=== PATIENT | male | born 1935 | race Caucasian/White ===

== ENCOUNTER 2016-09-19 13:35 | Outpatient (CLI) | payer MEDICARE, OTHER | END 2016-09-19 13:36 | disposition home or self-care (01) | DX: I12.9 Hypertensive chronic kidney disease with stage 1 through stage 4 chronic kidney disease, or unspecified chronic kidney disease (principal); E11.22 Type 2 diabetes mellitus with diabetic chronic kidney disease; N18.3 Chronic kidney disease, stage 3 (moderate); I35.0 Nonrheumatic aortic (valve) stenosis; I25.10 Atherosclerotic heart disease of native coronary artery without angina pectoris ==

== ENCOUNTER 2017-12-12 08:00 | Outpatient (CLI) | payer MEDICARE, OTHER ==
[2017-12-12 13:20] LABS: BASOPHILS % (AUTO) 0.7 %; EOSINOPHILS # (AUTO) 0.1 10^3/uL (0.0-0.7); LYMPHOCYTES # (AUTO) 1.4 10^3/uL (1.5-3.5); LYMPHOCYTES % (AUTO) 31.3 %; MEAN CORPUSCULAR HEMOGLOBIN 32.7 pg (27.0-31.0); MEAN CORPUSCULAR HGB CONC 34.3 g/dL (32.0-36.0); MEAN CORPUSCULAR VOLUME 95.4 fL (80.0-94.0); MEAN PLATELET VOLUME 8.1 fL (7.4-11.4); MONOCYTES # (AUTO) 0.3 10^3/uL (0.0-1.0); MONOCYTES % (AUTO) 7.3 %; NEUTROPHILS # (AUTO) 2.5 10^3/uL (1.5-6.6); NEUTROPHILS % (AUTO) 57.7 %; PLT - PLATELET COUNT 133 10^3/uL (130-450); RED BLOOD COUNT 4.28 10^6/uL (4.70-6.10); RED CELL DISTRIBUTION WIDTH 13.4 % (12.0-15.0); WHITE BLOOD COUNT 4.4 x10^3/uL (4.8-10.8)
[2017-12-12 13:35] LABS: ALBUMIN 3.9 g/dL (3.2-5.5); ALBUMIN/GLOBULIN RATIO 1.3 (1.0-2.2); ALKALINE PHOSPHATASE 29 IU/L (42-121); ALT ALANINE AMINOTRANSFERASE 65 IU/L (10-60); AST ASPARTATE AMINOTRANSFERASE 84 IU/L (10-42); BILIRUBIN,TOTAL 0.7 mg/dL (0.2-1.0); BUN - BLOOD UREA NITROGEN 16 mg/dL (6-20); CALCIUM 9.1 mg/dL (8.5-10.3); CARBON DIOXIDE - CO2 28 mmol/L (21-32); CHLORIDE 101 mmol/L (101-111); CHOL/HDL RATIO 7.6 (<5.0); CHOLESTEROL 273 mg/dL; CREATININE 1.1 mg/dL (0.6-1.2); GFR - MDRD 64 (>89); GLUCOSE 229 mg/dL (70-100); HDL CHOLESTEROL 36 mg/dL; LDL CHOLESTEROL,CALCULATED 169 mg/dL; LDL/HDL RATIO 4.7 (<3.6); SODIUM 135 mmol/L (135-145); TOTAL PROTEIN 6.9 g/dL (6.7-8.2); VLDL CHOLESTEROL 68 mg/dL
[2017-12-12 13:38] LABS: THYROID STIMULATING HORMONE 5.64 uIU/mL (0.34-5.60)
[2017-12-12 13:44] LABS: HB2 TOTAL 15.2 g/dL; HEMOGLOBIN A1C 1.21 g/dL; HEMOGLOBIN A1C % 9.4 % (4.6-6.2)
[2017-12-12 14:27] LABS: FREE T4 (FREE THYROXINE) 0.66 ng/dL (0.58-1.64)
== END 2017-12-12 08:01 | disposition home or self-care (01) ==
LOC: LAB.WCP 08:00
PROVIDERS: ATTEND Family Medicine
DX: N18.3 Chronic kidney disease, stage 3 (moderate) (principal); E11.22 Type 2 diabetes mellitus with diabetic chronic kidney disease; I50.9 Heart failure, unspecified; I95.1 Orthostatic hypotension; N28.9 Disorder of kidney and ureter, unspecified
CPT/HCPCS: 36415; 80053; 80061; 82043; 83036; 83721; 84439; 84443; 85025

== ENCOUNTER 2018-03-26 11:32 | Outpatient (CLI) | payer MEDICARE, OTHER ==
[2018-03-26 19:19] LABS: ALBUMIN 4.1 g/dL (3.2-5.5); BILIRUBIN,TOTAL 1.2 mg/dL (0.2-1.0); CALCIUM 9.5 mg/dL (8.5-10.3); CREATININE 1.3 mg/dL (0.6-1.2)
[2018-03-26 19:27] LABS: HB2 TOTAL 15.7 g/dL; HEMOGLOBIN A1C 0.96 g/dL; HEMOGLOBIN A1C % 7.7 % (4.6-6.2)
[2018-03-26 19:48] LABS: ALBUMIN/GLOBULIN RATIO 1.1 (1.0-2.2); TOTAL PROTEIN 7.8 g/dL (6.7-8.2)
== END 2018-03-26 11:33 | disposition home or self-care (01) ==
LOC: LAB.WCP 11:32
PROVIDERS: ATTEND Family Medicine
DX: R74.8 Abnormal levels of other serum enzymes (principal); E11.9 Type 2 diabetes mellitus without complications; I25.10 Atherosclerotic heart disease of native coronary artery without angina pectoris; E78.5 Hyperlipidemia, unspecified; N18.3 Chronic kidney disease, stage 3 (moderate); I12.9 Hypertensive chronic kidney disease with stage 1 through stage 4 chronic kidney disease, or unspecified chronic kidney disease; I95.1 Orthostatic hypotension; N28.9 Disorder of kidney and ureter, unspecified; I50.9 Heart failure, unspecified
CPT/HCPCS: 36415; 80053; 82043; 83036

== ENCOUNTER 2018-04-01 14:44 | Outpatient (CLI) | payer MEDICARE, OTHER ==
[2018-04-01 19:06] LABS: PT - PROTHROMBIN TIME 11.3 secs (9.9-12.6)
[2018-04-02 12:22] LABS: HEPATITIS A IGM NON-REACTIVE (NON-REACTIVE); HEPATITIS B CORE ANTIBODY IGM NON-REACTIVE (NON-REACTIVE); HEPATITIS B SURFACE ANTIGEN NON-REACTIVE (NON-REACTIVE); HEPATITIS C ANTIBODY NON-REACTIVE (NON-REACTIVE)
== END 2018-04-01 14:45 | disposition home or self-care (01) ==
LOC: LAB.WCP 14:44
PROVIDERS: ATTEND Family Medicine
DX: R74.8 Abnormal levels of other serum enzymes (principal); R94.5 Abnormal results of liver function studies; Z87.898 Personal history of other specified conditions
CPT/HCPCS: 36415; 80074; 85610

== ENCOUNTER 2018-04-12 09:13 | Outpatient (CLI) | payer MEDICARE, OTHER ==
--- NOTE | 2018-04-12 13:04 | Ultrasound Report ---
Procedure Date: 04/12/2018 Accession Number: [id number] / [id number] Procedure: US - Abdomen Limited CPT Code: FULL RESULT: EXAM: ABDOMEN ULTRASOUND LIMITED, RUQ EXAM DATE: 04/12/2018 10:20 AM. CLINICAL HISTORY: Elevated liver enzymes. COMPARISON: None. TECHNIQUE: Real-time scanning was performed with static images obtained. FINDINGS: Liver: Normal in size with increased echogenicity, which can be seen with parenchymal disease such as steatosis. Liver measures at least 14 cm. Main portal vein flow: Hepatopetal. Gallbladder: Normal. No stones, wall thickening, or sonographic Castañeda's sign. Biliary System: CBD measures 5 mm. No intrahepatic or extrahepatic ductal dilatation. Other: None. IMPRESSION: Normal. No cholelithiasis or cholecystitis. RADIA
== END 2018-04-12 09:14 | disposition home or self-care (01) ==
LOC: DI 09:13
PROVIDERS: ATTEND Family Medicine
DX: R74.8 Abnormal levels of other serum enzymes (principal)
CPT/HCPCS: 76705

== ENCOUNTER 2018-05-01 09:24 | Outpatient (CLI) | payer MEDICARE, OTHER ==
[2018-05-01 12:50] LABS: ALBUMIN 4.3 g/dL (3.2-5.5); ALBUMIN/GLOBULIN RATIO 1.4 (1.0-2.2); BILIRUBIN,TOTAL 0.9 mg/dL (0.2-1.0); CALCIUM 9.5 mg/dL (8.5-10.3); CREATININE 1.5 mg/dL (0.6-1.2); TOTAL PROTEIN 7.4 g/dL (6.7-8.2)
== END 2018-05-01 09:25 | disposition home or self-care (01) ==
LOC: LAB.WCP 09:24
PROVIDERS: ATTEND Family Medicine
DX: R74.8 Abnormal levels of other serum enzymes (principal)
CPT/HCPCS: 36415; 80053

== ENCOUNTER 2018-09-03 09:17 | Outpatient (CLI) | payer MEDICARE, OTHER ==
[2018-09-03 12:34] LABS: CALCIUM 9.5 mg/dL (8.5-10.3); CREATININE 1.4 mg/dL (0.6-1.2)
== END 2018-09-03 23:59 | disposition home or self-care (01) ==
LOC: LAB.WCP 09:17
PROVIDERS: ATTEND Internal Medicine Cardiovascular Disease
DX: I10 Essential (primary) hypertension (principal)
CPT/HCPCS: 36415; 80048

== ENCOUNTER 2018-09-25 08:00 | Outpatient (CLI) | payer MEDICARE, OTHER ==
[2018-09-25 13:02] LABS: HGB - HEMOGLOBIN 13.8 g/dL (14.0-18.0); MEAN CORPUSCULAR HEMOGLOBIN 32.4 pg (27.0-31.0); MEAN CORPUSCULAR HGB CONC 34.2 g/dL (32.0-36.0); MEAN CORPUSCULAR VOLUME 94.9 fL (80.0-94.0); MEAN PLATELET VOLUME 8.8 fL (7.4-11.4); RED BLOOD COUNT 4.25 10^6/uL (4.70-6.10); RED CELL DISTRIBUTION WIDTH 13.4 % (12.0-15.0); WHITE BLOOD COUNT 5.8 x10^3/uL (4.8-10.8)
[2018-09-25 13:14] LABS: CALCIUM 9.4 mg/dL (8.5-10.3); CREATININE 1.5 mg/dL (0.6-1.2)
== END 2018-09-25 23:59 | disposition home or self-care (01) ==
LOC: LAB.WCP 08:00
PROVIDERS: ATTEND Orthopaedic Surgery
DX: Z01.818 Encounter for other preprocedural examination (principal)
CPT/HCPCS: 36415; 80048; 85027

== ENCOUNTER 2018-10-23 08:25 | Outpatient (CLI) | payer MEDICARE, OTHER ==
[2018-10-23 13:03] LABS: BASOPHILS # (AUTO) 0.1 10^3/uL (0.0-0.1); BASOPHILS % (AUTO) 1.4 %; EOSINOPHILS # (AUTO) 0.2 10^3/uL (0.0-0.7); EOSINOPHILS % (AUTO) 3.2 %; HGB - HEMOGLOBIN 11.5 g/dL (14.0-18.0); LYMPHOCYTES # (AUTO) 2.2 10^3/uL (1.5-3.5); LYMPHOCYTES % (AUTO) 35.7 %; MEAN CORPUSCULAR HEMOGLOBIN 32.8 pg (27.0-31.0); MEAN CORPUSCULAR HGB CONC 34.6 g/dL (32.0-36.0); MEAN CORPUSCULAR VOLUME 94.6 fL (80.0-94.0); MONOCYTES # (AUTO) 0.6 10^3/uL (0.0-1.0); MONOCYTES % (AUTO) 9.5 %; NEUTROPHILS % (AUTO) 50.2 %; PLT - PLATELET COUNT 229 10^3/uL (130-450); RED BLOOD COUNT 3.52 10^6/uL (4.70-6.10); RED CELL DISTRIBUTION WIDTH 13.4 % (12.0-15.0)
[2018-10-23 13:10] LABS: ALBUMIN 3.8 g/dL (3.2-5.5); ALBUMIN/GLOBULIN RATIO 1.2 (1.0-2.2); BILIRUBIN,TOTAL 0.7 mg/dL (0.2-1.0); CREATININE 1.4 mg/dL (0.6-1.2)
[2018-10-23 13:22] LABS: HB2 TOTAL 12.2 g/dL; HEMOGLOBIN A1C 0.73 g/dL; HEMOGLOBIN A1C % 7.6 % (4.6-6.2)
== END 2018-10-23 08:26 | disposition home or self-care (01) ==
LOC: LAB.WCP 08:25
PROVIDERS: ATTEND Family Medicine
DX: R74.8 Abnormal levels of other serum enzymes (principal); E11.9 Type 2 diabetes mellitus without complications; N18.3 Chronic kidney disease, stage 3 (moderate); I25.10 Atherosclerotic heart disease of native coronary artery without angina pectoris; I35.0 Nonrheumatic aortic (valve) stenosis
CPT/HCPCS: 36415; 80053; 83036; 85025

== ENCOUNTER 2018-11-14 08:39 | Outpatient (CLI) | payer MEDICARE, OTHER ==
[2018-11-14 13:29] LABS: CHOL/HDL RATIO 3.7 (<5.0); CHOLESTEROL 146 mg/dL; HDL CHOLESTEROL 40 mg/dL; LDL CHOLESTEROL,CALCULATED 77 mg/dL; LDL/HDL RATIO 1.9 (<3.6); VLDL CHOLESTEROL 29 mg/dL
[2018-11-14 13:40] LABS: CREATININE,URINE 133.1 mg/dL; MICROALBUM/CREATININE RATIO,UR 7.5 ug/mg (<30.0)
== END 2018-11-14 23:59 | disposition home or self-care (01) ==
LOC: LAB.WCP 08:39
PROVIDERS: ATTEND Family Medicine
DX: E78.5 Hyperlipidemia, unspecified (principal); N18.3 Chronic kidney disease, stage 3 (moderate); I25.10 Atherosclerotic heart disease of native coronary artery without angina pectoris; E11.9 Type 2 diabetes mellitus without complications
CPT/HCPCS: 36415; 80061; 82043; 82570; 83721

== ENCOUNTER 2019-07-16 07:00 | Outpatient (CLI) | payer MEDICARE, OTHER ==
[2019-07-16 13:06] LABS: BASOPHILS # (AUTO) 0.1 10^3/uL (0.0-0.1); EOSINOPHILS # (AUTO) 0.1 10^3/uL (0.0-0.7); HGB - HEMOGLOBIN 13.8 g/dL (14.0-18.0); LYMPHOCYTES # (AUTO) 1.8 10^3/uL (1.5-3.5); MEAN CORPUSCULAR HGB CONC 31.2 g/dL (32.0-36.0); MEAN CORPUSCULAR VOLUME 99.3 fL (80.0-94.0); MEAN PLATELET VOLUME 10.7 fL (7.4-11.4); MONOCYTES # (AUTO) 0.5 10^3/uL (0.0-1.0); NEUTROPHILS # (AUTO) 2.7 10^3/uL (1.5-6.6); NEUTROPHILS % (AUTO) 52.6 %; PLT - PLATELET COUNT 163 10^3/uL (130-450); RED BLOOD COUNT 4.45 10^6/uL (4.70-6.10); RED CELL DISTRIBUTION WIDTH 12.6 % (12.0-15.0); WHITE BLOOD COUNT 5.1 x10^3/uL (4.8-10.8)
[2019-07-16 16:09] LABS: ALBUMIN 4.3 g/dL (3.2-5.5); ALBUMIN/GLOBULIN RATIO 1.4 (1.0-2.2); BILIRUBIN,TOTAL 0.8 mg/dL (0.2-1.0); CALCIUM 9.1 mg/dL (8.5-10.3); CREATININE 1.4 mg/dL (0.6-1.2); TOTAL PROTEIN 7.3 g/dL (6.7-8.2)
[2019-07-16 17:34] LABS: FREE T4 (FREE THYROXINE) 0.74 ng/dL (0.58-1.64)
[2019-07-16 17:37] LABS: HEMOGLOBIN A1C 0.92 g/dL; HEMOGLOBIN A1C % 8.2 % (4.6-6.2)
[2019-07-16 18:23] LABS: CREATININE,URINE 99.9 mg/dL; MICROALBUMIN,URINE 1.6 mg/dL (0-300.0)
== END 2019-07-16 23:59 | disposition home or self-care (01) ==
LOC: LAB.WCP 07:00
PROVIDERS: ATTEND Family Medicine
DX: E11.22 Type 2 diabetes mellitus with diabetic chronic kidney disease (principal); I12.9 Hypertensive chronic kidney disease with stage 1 through stage 4 chronic kidney disease, or unspecified chronic kidney disease; N18.3 Chronic kidney disease, stage 3 (moderate); I25.10 Atherosclerotic heart disease of native coronary artery without angina pectoris
CPT/HCPCS: 36415; 80053; 82043; 82570; 83036; 84439; 84443; 85025

== ENCOUNTER 2019-10-28 00:46 | Emergency (ER) | payer MEDICARE, OTHER ==
--- NOTE | 2019-10-28 01:06 | ED Physician Documentation ---
PD HPI CHEST PAIN - Stated complaint Stated Complaint: CP/LT ARM PX - Chief complaint Chief Complaint: Cardiac - History obtained from History obtained from: Patient - History of Present Illness Timing - onset: How many days ago (4-5) Timing - onset during: Rest (at night when in bed trying to sleep) Timing - duration: Hours Timing - details: Intermittant Pain level max: 4 Pain level now: 0 Quality: Pain Location: Other (across anterior chest ("my whole chest", per patient)) Radiation: Left upper extremity Improved by: Nitro, Other (repositioning in bed seems to correlate with improvement and/or resolution of the LUE pain) Associated symptoms: Nausea (episodic nausea when in bed trying to sleep over past 6 weeks, but does not seem to have correlation with timing of the LUE pain). No: Shortness of air Similar symptoms before: Has not had sx before Recently seen: Not recently seen - Additional information Additional information: c/o 4-5 days of LUE pain which seems to originate at left elbow and then radiate proximally to shoulder and distally to fingers. This occurs only at night and seems to be positional. For the past 2-3 days, he has had episodic chest pain across entire anterior chest, lasts hours but recurrent x 2-3 days. Sometimes correlates with the LUE pain but most episodes do not. There is no exertional component to any of these symptoms. He had the chest and LUE pain tonight but this resolved by the time of this H+P and he is currently asymptomatic PD PAST MEDICAL HISTORY - Past Medical History Cardiovascular: Hypertension, High cholesterol, Valve disorder Respiratory: Asthma Endocrine/Autoimmune: Type 2 diabetes GI: GERD Psych: None Musculoskeletal: None - Past Surgical History Cardiovascular: Valve replacement, Pacemaker HEENT: Cataracts - Present Medications Home Medications: Ambulatory Orders Medication Instructions Recorded Confirmed Albuterol Sulfate 0.63 mg IH 3-4XD PRN 06/02/13 06/02/13 Aspirin/Calcium Carbonate/Mag 325 mg PO DAILY 06/02/13 06/02/13 [Aspirin Non Irrit 325 mg Tab] Atorvastatin Calcium [Lipitor] 40 mg PO DAILY 06/02/13 06/02/13 Clonazepam 1 mg PO PRN 06/02/13 06/02/13 Fenofibrate [Tricor] 48 mg PO QD 06/02/13 06/02/13 Glipizide [Glipizide ER] 10 mg PO DAILY 06/02/13 06/02/13 Glucosa Rollins 2Kcl/Chondroitin Rollins 1 tab 06/02/13 06/02/13 [Glucosamine & Chondroitin Cap] Insulin Glargine [Lantus Solostar] 10 units QAM 06/02/13 06/02/13 Lisinopril 10 mg PO DAILY 06/02/13 06/02/13 Metformin HCl 1,000 mg PO BID 06/02/13 06/02/13 Metoprolol Succinate [Toprol Xl] 2 tab DAILY 06/02/13 06/02/13 Nitroglycerin [Nitrostat] 0.4 mg SL Q5MIN PRN 06/02/13 06/02/13 polyethylene glycoL 3350 [Miralax] 17 gm PO DAILY PRN 06/02/13 06/02/13 - Allergies Allergies/Adverse Reactions: Allergies Allergy/AdvReac Type Severity Reaction Status Date / Time No Known Drug Allergies Allergy Verified 06/02/13 15:36 - Social History Does the pt smoke?: No Smoking Status: Never smoker PD ED PE NORMAL - Vitals Vital signs reviewed: Yes - General General: Alert and oriented X 3, No acute distress, Well developed/nourished - HEENT HEENT: Moist mucous membranes - Neck Neck: Supple, no meningeal sign, No JVD - Cardiac Cardiac: RRR - Respiratory Respiratory: No respiratory distress, Clear bilaterally - Abdomen Abdomen: Normal bowel sounds, Soft, Non tender - Derm Derm: Normal color, Warm and dry - Extremities Extremities: No edema PD ED PE EXPANDED - Cardiac Cardiac: Murmur Present (3/6 ANNEMARIE right sternal border (right 2nd ICS)) Results - Vitals Vitals: Vital Signs - 24 hr 10/28/19 10/28/19 10/28/19 00:54 00:57 04:23 Temperature 36.9 C Heart Rate 58 L 60 60 Respiratory 20 18 18 Rate Blood Pressure 128/52 L 124/57 L 135/60 H O2 Saturation 96 95 97 - EKG (time done) No standard instances Rate: Rate (enter#) (60) Rhythm: Paced (a-v paced) - Labs Labs: Laboratory Tests 10/28/19 10/28/19 10/28/19 01:12 01:12 01:12 WBC 5.4 RBC 4.23 L Hgb 13.2 L Hct 40.9 L MCV 96.7 H MCH 31.2 H MCHC 32.3 RDW 12.5 Plt Count 136 MPV 10.0 Neut # (Auto) 2.5 Lymph # (Auto) 2.3 [place] # (Auto) 0.5 Eos # (Auto) 0.2 Baso # (Auto) 0.1 Absolute Nucleated RBC 0.00 Nucleated RBC % 0.0 Sodium 137 Potassium 4.2 Chloride 102 Carbon Dioxide 25 Anion Gap 10.0 BUN 20 Creatinine 1.1 Estimated GFR (MDRD) 63 L Glucose 181 H Calcium 9.4 Total Bilirubin 0.5 AST 38 ALT 41 Alkaline Phosphatase 32 L Troponin I High Sens 25.9 H* Total Protein 7.1 Albumin 4.2 Globulin 2.9 Albumin/Globulin Ratio 1.4 Lipase 41 10/28/19 03:45 WBC RBC Hgb Hct MCV MCH MCHC RDW Plt Count MPV Neut # (Auto) Lymph # (Auto) [place] # (Auto) Eos # (Auto) Baso # (Auto) Absolute Nucleated RBC Nucleated RBC % Sodium Potassium Chloride Carbon Dioxide Anion Gap BUN Creatinine Estimated GFR (MDRD) Glucose Calcium Total Bilirubin AST ALT Alkaline Phosphatase Troponin I High Sens 26.8 H* Total Protein Albumin Globulin Albumin/Globulin Ratio Lipase - Rads (name of study) chest xray Radiology: Prelim report reviewed, See rad report PD MEDICAL DECISION MAKING - ED course Complexity details: reviewed results, re-evaluated patient, considered differential, d/w patient ED course: results reviewed with patient. Mildly elevated hsTrop without significant delta on 2-hour repeat. Asymptomatic on reevaluation. Departure - Departure Disposition: 01 Home, Self Care Clinical Impression: Chest pain Condition: Good Instructions: ED Chest Pain Atypical Unkn Cause Follow-Up: Hector Santiago MD [Primary Care Provider] - Comments: Contact your paper inspector to arrange for soonest available follow up appointment Discharge Date/Time: 10/28/19 04:23
[2019-10-28 01:23] LABS: BASOPHILS # (AUTO) 0.1 10^3/uL (0.0-0.1); BASOPHILS % (AUTO) 1.1 %; EOSINOPHILS # (AUTO) 0.2 10^3/uL (0.0-0.7); EOSINOPHILS % (AUTO) 3.1 %; HGB - HEMOGLOBIN 13.2 g/dL (14.0-18.0); LYMPHOCYTES # (AUTO) 2.3 10^3/uL (1.5-3.5); LYMPHOCYTES % (AUTO) 41.4 %; MEAN CORPUSCULAR HEMOGLOBIN 31.2 pg (27.0-31.0); MEAN CORPUSCULAR HGB CONC 32.3 g/dL (32.0-36.0); MEAN CORPUSCULAR VOLUME 96.7 fL (80.0-94.0); MONOCYTES # (AUTO) 0.5 10^3/uL (0.0-1.0); MONOCYTES % (AUTO) 8.5 %; NEUTROPHILS # (AUTO) 2.5 10^3/uL (1.5-6.6); NEUTROPHILS % (AUTO) 45.7 %; PLT - PLATELET COUNT 136 10^3/uL (130-450); RED BLOOD COUNT 4.23 10^6/uL (4.70-6.10); RED CELL DISTRIBUTION WIDTH 12.5 % (12.0-15.0); WHITE BLOOD COUNT 5.4 x10^3/uL (4.8-10.8)
[2019-10-28 01:28] LABS: ALBUMIN 4.2 g/dL (3.2-5.5); ALBUMIN/GLOBULIN RATIO 1.4 (1.0-2.2); BILIRUBIN,TOTAL 0.5 mg/dL (0.2-1.0); CALCIUM 9.4 mg/dL (8.5-10.3); CREATININE 1.1 mg/dL (0.6-1.2); TOTAL PROTEIN 7.1 g/dL (6.7-8.2)
--- NOTE | 2019-10-28 01:34 | XRAY Report ---
Reason: Chest pain Procedure Date: 10/28/2019 Accession Number: [id number] / [id number] Procedure: XR - Chest 1 View X-Ray CPT Code: 82151 Final Report FULL RESULT: EXAM: CHEST RADIOGRAPHY EXAM DATE: 10/28/2019 01:21 AM. CLINICAL HISTORY: Chest pain. COMPARISON: XR CHEST PA AND LAT 08/03/2011 12:03 PM. TECHNIQUE: 1 view. FINDINGS: Lungs/Pleura: The level of inspiration is low. There are no infiltrates, pleural effusions, nor pneumothoraces. Mediastinum: The heart is slightly prominent. There is a pacemaker in the left with 2 intact leads. Other: None. IMPRESSION: 1. Stable appearance of the chest. No acute infiltrates. RADIA
[2019-10-28 04:23] VITALS: BP 135/60
== END 2019-10-28 04:23 | disposition home or self-care (01) ==
LOC: ED 00:46
DX: R07.9 Chest pain, unspecified (principal); I10 Essential (primary) hypertension; E11.9 Type 2 diabetes mellitus without complications; Z79.4 Long term (current) use of insulin
CPT/HCPCS: 36415; 71045; 80053; 83690; 84484; 85025; 93005; 99281; 99284

== ENCOUNTER 2020-01-08 09:16 | Outpatient (CLI) | payer MEDICARE, OTHER ==
[2020-01-08 13:25] LABS: BASOPHILS % (AUTO) 0.6 %; EOSINOPHILS # (AUTO) 0.2 10^3/uL (0.0-0.7); EOSINOPHILS % (AUTO) 2.2 %; HGB - HEMOGLOBIN 14.3 g/dL (14.0-18.0); LYMPHOCYTES % (AUTO) 44.4 %; MEAN CORPUSCULAR HEMOGLOBIN 30.8 pg (27.0-31.0); MEAN CORPUSCULAR HGB CONC 31.2 g/dL (32.0-36.0); MEAN CORPUSCULAR VOLUME 98.5 fL (80.0-94.0); MEAN PLATELET VOLUME 10.2 fL (7.4-11.4); MONOCYTES # (AUTO) 0.6 10^3/uL (0.0-1.0); MONOCYTES % (AUTO) 8.4 %; NEUTROPHILS % (AUTO) 44.1 %; PLT - PLATELET COUNT 150 10^3/uL (130-450); RED BLOOD COUNT 4.65 10^6/uL (4.70-6.10); WHITE BLOOD COUNT 6.8 x10^3/uL (4.8-10.8)
[2020-01-08 13:27] LABS: HB2 TOTAL 15.2 g/dL; HEMOGLOBIN A1C 0.89 g/dL; HEMOGLOBIN A1C % 7.5 % (4.6-6.2)
[2020-01-08 13:33] LABS: ALBUMIN 4.4 g/dL (3.2-5.5); ALBUMIN/GLOBULIN RATIO 1.5 (1.0-2.2); ALKALINE PHOSPHATASE 32 IU/L (42-121); ALT ALANINE AMINOTRANSFERASE 51 IU/L (10-60); AST ASPARTATE AMINOTRANSFERASE 50 IU/L (10-42); BILIRUBIN,TOTAL 1.1 mg/dL (0.2-1.0); BUN - BLOOD UREA NITROGEN 23 mg/dL (6-20); CALCIUM 9.5 mg/dL (8.5-10.3); CARBON DIOXIDE - CO2 29 mmol/L (21-32); CHLORIDE 103 mmol/L (101-111); CHOL/HDL RATIO 4.1 (<5.0); CHOLESTEROL 170 mg/dL; CREATININE 1.4 mg/dL (0.6-1.2); GLUCOSE 152 mg/dL (70-100); HDL CHOLESTEROL 41 mg/dL; LDL CHOLESTEROL,CALCULATED 102 mg/dL; LDL/HDL RATIO 2.5 (<3.6); SODIUM 139 mmol/L (135-145); TOTAL PROTEIN 7.4 g/dL (6.7-8.2); VLDL CHOLESTEROL 27 mg/dL
[2020-01-08 13:40] LABS: CREATININE,URINE 89.6 mg/dL; MICROALBUM/CREATININE RATIO,UR 7.8 ug/mg (<30.0); MICROALBUMIN,URINE 0.7 mg/dL (0-300.0)
[2020-01-08 14:06] LABS: FREE T4 (FREE THYROXINE) 0.77 ng/dL (0.58-1.64)
== END 2020-01-08 23:59 | disposition home or self-care (01) ==
LOC: LAB.WCP 09:16
PROVIDERS: ATTEND Family Medicine
DX: N40.1 Benign prostatic hyperplasia with lower urinary tract symptoms (principal); I12.9 Hypertensive chronic kidney disease with stage 1 through stage 4 chronic kidney disease, or unspecified chronic kidney disease; E11.22 Type 2 diabetes mellitus with diabetic chronic kidney disease; N18.3 Chronic kidney disease, stage 3 (moderate); I25.10 Atherosclerotic heart disease of native coronary artery without angina pectoris; E78.5 Hyperlipidemia, unspecified
CPT/HCPCS: 36415; 80053; 80061; 82043; 82570; 83036; 83721; 84439; 84443; 85025

== ENCOUNTER → 2020-06-02 | Outpatient (CLI) | payer MEDICARE, OTHER ==
[2020-06-02 18:51] LABS: ALBUMIN 4.3 g/dL (3.2-5.5); ALBUMIN/GLOBULIN RATIO 1.5 (1.0-2.2); CALCIUM 9.3 mg/dL (8.5-10.3); CREATININE 1.2 mg/dL (0.6-1.2); TOTAL PROTEIN 7.1 g/dL (6.7-8.2)
[2020-06-02 18:56] LABS: CHOL/HDL RATIO 4.1 (<5.0); CHOLESTEROL 169 mg/dL; HDL CHOLESTEROL 41 mg/dL; LDL CHOLESTEROL,CALCULATED 99 mg/dL; LDL/HDL RATIO 2.4 (<3.6); VLDL CHOLESTEROL 29 mg/dL
[2020-06-02 20:28] LABS: HEMOGLOBIN A1c% 7.4 % (4.27-6.07)
== END ==
LOC: LAB.WCP 11:45
PROVIDERS: ATTEND Family Medicine
DX: I25.10 Atherosclerotic heart disease of native coronary artery without angina pectoris (principal); E11.9 Type 2 diabetes mellitus without complications; E78.5 Hyperlipidemia, unspecified
CPT/HCPCS: 36415; 80053; 80061; 82043; 82570; 83036; 83721

== ENCOUNTER 2020-12-03 08:00 | Outpatient (CLI) | payer MEDICARE, OTHER ==
[2020-12-03 13:21] LABS: CALCIUM 9.7 mg/dL (8.5-10.3); CREATININE 1.1 mg/dL (0.6-1.2)
== END 2020-12-03 23:59 | disposition home or self-care (01) ==
LOC: LAB.WCP 08:00
PROVIDERS: ATTEND Internal Medicine Cardiovascular Disease
DX: I10 Essential (primary) hypertension (principal)
CPT/HCPCS: 36415; 80048

== ENCOUNTER 2021-01-25 11:01 | Outpatient (CLI) | payer MEDICARE, OTHER ==
[2021-01-25 18:23] LABS: CALCIUM 9.4 mg/dL (8.5-10.3); CREATININE 1.3 mg/dL (0.6-1.2); POTASSIUM 4.5 mmol/L (3.5-5.0)
[2021-01-25 19:57] LABS: ESTIMATED AVERAGE GLUCOSE 235 mg/dL (70-100); HEMOGLOBIN A1c% 9.8 % (4.27-6.07)
== END 2021-01-25 23:59 | disposition home or self-care (01) ==
LOC: LAB.WCP 11:01
PROVIDERS: ATTEND Nurse Practitioner Family
DX: E11.9 Type 2 diabetes mellitus without complications (principal)
CPT/HCPCS: 36415; 80048; 83036

== ENCOUNTER 2021-07-25 08:00 | Outpatient (CLI) | payer MEDICARE, OTHER ==
[2021-07-25 12:01] LABS: BASOPHILS # (AUTO) 0.1 10^3/uL (0.0-0.1); BASOPHILS % (AUTO) 1.1 %; EOSINOPHILS # (AUTO) 0.1 10^3/uL (0.0-0.7); EOSINOPHILS % (AUTO) 1.6 %; HCT - HEMATOCRIT 34.1 % (42.0-52.0); HGB - HEMOGLOBIN 11.1 g/dL (14.0-18.0); LYMPHOCYTES # (AUTO) 1.9 10^3/uL (1.5-3.5); LYMPHOCYTES % (AUTO) 35.2 %; MEAN CORPUSCULAR HEMOGLOBIN 33.2 pg (27.0-31.0); MEAN CORPUSCULAR HGB CONC 32.6 g/dL (32.0-36.0); MEAN CORPUSCULAR VOLUME 102.1 fL (80.0-94.0); MEAN PLATELET VOLUME 10.5 fL (7.4-11.4); MONOCYTES # (AUTO) 0.5 10^3/uL (0.0-1.0); MONOCYTES % (AUTO) 9.3 %; NEUTROPHILS # (AUTO) 2.9 10^3/uL (1.5-6.6); NEUTROPHILS % (AUTO) 52.4 %; PLT - PLATELET COUNT 145 10^3/uL (130-450); RED BLOOD COUNT 3.34 10^6/uL (4.70-6.10); RED CELL DISTRIBUTION WIDTH 13.7 % (12.0-15.0); WHITE BLOOD COUNT 5.5 x10^3/uL (4.8-10.8)
[2021-07-25 12:34] LABS: ESTIMATED AVERAGE GLUCOSE 163 mg/dL (70-100); HEMOGLOBIN A1c% 7.3 % (4.27-6.07); MICROALBUM/CREATININE RATIO,UR 29.5 ug/mg (<30.0); MICROALBUMIN,URINE 2.6 mg/dL (0-300.0)
[2021-07-25 12:35] LABS: THYROID STIMULATING HORMONE 8.8 uIU/mL (0.34-5.60)
[2021-07-25 12:44] LABS: ALBUMIN/GLOBULIN RATIO 1.3 (1.0-2.2); ALKALINE PHOSPHATASE 43 IU/L (42-121); ALT ALANINE AMINOTRANSFERASE 61 IU/L (10-60); AST ASPARTATE AMINOTRANSFERASE 59 IU/L (10-42); BILIRUBIN,TOTAL 0.8 mg/dL (0.2-1.0); BUN - BLOOD UREA NITROGEN 28 mg/dL (6-20); CALCIUM 10.3 mg/dL (8.5-10.3); CARBON DIOXIDE - CO2 28 mmol/L (21-32); CHLORIDE 100 mmol/L (101-111); CHOL/HDL RATIO 2.6 (<5.0); CHOLESTEROL 143 mg/dL; CREATININE 1.5 mg/dL (0.6-1.2); GFR - MDRD 44 (>89); GLUCOSE 159 mg/dL (70-100); HDL CHOLESTEROL 55 mg/dL; LDL CHOLESTEROL,CALCULATED 76 mg/dL; LDL/HDL RATIO 1.4 (<3.6); POTASSIUM 5.1 mmol/L (3.5-5.0); SODIUM 139 mmol/L (135-145); TOTAL PROTEIN 7.2 g/dL (6.7-8.2); TRIGLYCERIDES 61 mg/dL; VLDL CHOLESTEROL 12 mg/dL
[2021-07-25 13:10] LABS: FREE T4 (FREE THYROXINE) 0.71 ng/dL (0.58-1.64)
== END 2021-07-25 23:59 | disposition home or self-care (01) ==
LOC: LAB.WCP 08:00
PROVIDERS: ATTEND Internal Medicine
DX: I10 Essential (primary) hypertension (principal); E11.29 Type 2 diabetes mellitus with other diabetic kidney complication; E78.5 Hyperlipidemia, unspecified
CPT/HCPCS: 36415; 80053; 80061; 82043; 82570; 83036; 83721; 84439; 84443; 85025

== ENCOUNTER 2021-08-13 07:57 | Outpatient (CLI) | payer MEDICARE, OTHER | END 2021-08-13 07:58 | disposition critical access hospital (66) | LOC: EMS 07:57 | DX: R06.02 Shortness of breath (principal) | CPT/HCPCS: A0425; A0429 ==

== ENCOUNTER 2021-08-13 08:10 | Emergency (ER) | payer MEDICARE, OTHER ==
[2021-08-13] MEDS ORDERED: ALBUTEROL NEB 2.5 MG/3 ML INH STA (08:30)
[2021-08-13] MEDS ORDERED: NITROGLYCERIN SL 0.4 MG TABLET SL STA (08:30)
[2021-08-13] MEDS ORDERED: FUROSEMIDE 40 MG/4 ML VIAL IVP STA (08:30)
--- NOTE | 2021-08-13 08:30 | ED Physician Documentation ---
PD HPI DYSPNEA - Stated complaint Stated Complaint: SOA - History obtained from History obtained from: Patient - History of Present Illness Timing - onset: How many weeks ago (1-2) Timing - onset during: Sleep (lying down has significant trouble breathing.), Light activity (dyspnea and chest pressure, progressively worse past 1-2 weeks.) Timing - duration: Weeks Timing - details: Gradual onset, Still present Inciting event(s): No: URI, Immobilization/travel Improved by: Rest, Sitting up Worsened by: Exertion, Laying flat Associated symptoms: Chest pain / discomfort, Bilateral edema. No: Fever, Cough, Wheezing, Unilateral edema Similar symptoms before: Has not had sx before (Dx with CHF in the past but has not had symptoms to the degree at all.) Recently seen: Not recently seen Review of Systems Constitutional: denies: Fever, Chills Nose: denies: Rhinorrhea / runny nose, Congestion Throat: denies: Sore throat Cardiac: reports: Chest pain / pressure (with activity and worse breathing for the past 1-2 weeks, progressively worse. Feeling of pressure chest.), Pedal edema (progressive the past 1-2 weeks.). denies: Palpitations, Calf pain Respiratory: reports: Dyspnea. denies: Cough, Hemoptysis GI: denies: Abdominal Pain, Nausea, Vomiting, Diarrhea Musculoskeletal: reports: Extremity swelling Neurologic: reports: Generalized weakness. denies: Near syncope, Confused, Headache PD PAST MEDICAL HISTORY - Past Medical History Cardiovascular: Hypertension, High cholesterol, Arrhythmia (bradycardia with pacemaker placed. ), Valve disorder Respiratory: Asthma Endocrine/Autoimmune: Type 2 diabetes GI: GERD Psych: None Musculoskeletal: None - Past Surgical History Cardiovascular: Valve replacement, Pacemaker HEENT: Cataracts - Present Medications Home Medications: Ambulatory Orders Medication Instructions Recorded Confirmed Albuterol Sulfate 0.63 mg IH 3-4XD PRN 06/02/13 08/13/21 Atorvastatin Calcium [Lipitor] 40 mg PO DAILY 06/02/13 08/13/21 Clonazepam 0.5 mg PO DAILY 06/02/13 08/13/21 Fenofibrate [Tricor] 48 mg PO QD 06/02/13 08/13/21 Glipizide [Glipizide ER] 10 mg PO DAILY 06/02/13 08/13/21 Insulin Glargine [Lantus Solostar] 30 units SQ QAM 10/07/13 12/18/21 Lisinopril 10 mg PO DAILY 06/02/13 08/13/21 Metformin HCl 1,000 mg PO DAILY 06/02/13 08/13/21 Metoprolol Succinate [Toprol Xl] 50 mg ORAL DAILY 06/02/13 08/13/21 Nitroglycerin [Nitrostat] 0.4 mg SL Q5MIN PRN 06/02/13 08/13/21 Aspirin EC [Ecotrin] 81 mg PO DAILY 08/13/21 08/13/21 Cholecalciferol (Vitamin D3) 50 mcg PO DAILY 08/13/21 08/13/21 [Vitamin D3] Finasteride [Proscar] 5 mg PO DAILY 08/13/21 08/13/21 [place]-3/Dha/Epa/Fish Oil [Fish Oil 1,000 mg PO DAILY 08/13/21 08/13/21 1,000 mg Softgel] hydroCHLOROthiazide [Hydrodiuril] 12.5 mg PO DAILY 08/13/21 08/13/21 - Allergies Allergies/Adverse Reactions: Allergies Allergy/AdvReac Type Severity Reaction Status Date / Time No Known Drug Allergies Allergy Verified 08/13/21 08:31 - Social History Does the pt smoke?: No Smoking Status: Never smoker PD ED PE NORMAL - Vitals Vital signs reviewed: Yes - General General: Alert and oriented X 3, Well developed/nourished, Other (appears in distress breathing. Sats are adequate. No accessory muscle use. Wants to be sitting upright though. ) - HEENT HEENT: Pharynx benign - Neck Neck: Supple, no meningeal sign, No adenopathy, No bruit, Other (JVD noted at 45 degrees. ) - Cardiac Cardiac: RRR, No murmur - Respiratory Respiratory: Other (tachycpnea and wanting to sit upright. No accessory muscle use. ). No: Clear bilaterally (fine crackles lower half both lung nascimento. No coarse sounds. ) - Abdomen Abdomen: Soft, Non tender - Back Back: No CVA TTP - Derm Derm: Normal color, Warm and dry - Extremities Extremities: Normal ROM s pain, No calf tenderness / cord, Other (2+ edema in both legs up to the knees. No redness. ) - Neuro Neuro: Alert and oriented X 3, No motor deficit, Normal speech Eye Opening: Spontaneous Motor: Obeys Commands Verbal: Oriented GCS Score: 15 Results - Vitals Vitals: Vital Signs - 24 hr 08/13/21 08/13/21 08/13/21 08:25 08:45 09:00 Temperature 37.3 C Heart Rate 73 68 63 Respiratory 24 20 18 Rate Blood Pressure 156/75 H 103/52 L O2 Saturation 99 96 08/13/21 11:18 Temperature Heart Rate 72 Respiratory 19 Rate Blood Pressure 139/70 H O2 Saturation 96 Oxygen O2 Source Room air - EKG (time done) triage Rate: Rate (enter#) (68) Rhythm: Paced Intervals: Wide QRS Ischemia: No: ST elevation c/w ischemia - Labs Labs: Laboratory Tests 08/13/21 08/13/21 08/13/21 08:21 08:21 08:21 WBC 7.8 RBC 3.49 L Hgb 11.9 L Hct 35.4 L MCV 101.4 H MCH 34.1 H MCHC 33.6 RDW 13.6 Plt Count 170 MPV 9.9 Neut # (Auto) 4.4 Lymph # (Auto) 2.6 [place] # (Auto) 0.7 Eos # (Auto) 0.1 Baso # (Auto) 0.0 Absolute Nucleated RBC 0.00 Nucleated RBC % 0.0 Sodium 132 L Potassium 4.2 Chloride 95 L Carbon Dioxide 24 Anion Gap 13.0 BUN 29 H Creatinine 1.3 H Estimated GFR (MDRD) 52 L Glucose 117 H Calcium 9.4 Total Bilirubin 1.1 H AST 61 H ALT 52 Alkaline Phosphatase 52 Troponin I High Sens 2342.7 H* B-Natriuretic Peptide Total Protein 7.4 Albumin 4.0 Globulin 3.4 Albumin/Globulin Ratio 1.2 Lipase 37 Nasal Adenovirus (PCR) Nasal B. parapertussis DNA (PCR) Nasal Coronavir 229E PCR Nasal Coronavir HKU1 PCR Nasal Coronavir NL63 PCR Nasal Coronavir OC43 PCR Nasal Enterovir/Rhinovir PCR Nasal Influenza B PCR Nasal Influenza A PCR Nasal Parainfluen 1 PCR Nasal Parainfluen 2 PCR Nasal Parainfluen 3 PCR Nasal Parainfluen 4 PCR Nasal RSV (PCR) Nasal B.pertussis DNA PCR Nasal C.pneumoniae (PCR) [place]el Human Metapneumo PCR Nasal M.pneumoniae (PCR) Nasal SARS-CoV-2 (PCR) 08/13/21 08/13/21 08/13/21 08:21 10:15 10:24 WBC RBC Hgb Hct MCV MCH MCHC RDW Plt Count MPV Neut # (Auto) Lymph # (Auto) [place] # (Auto) Eos # (Auto) Baso # (Auto) Absolute Nucleated RBC Nucleated RBC % Sodium Potassium Chloride Carbon Dioxide Anion Gap BUN Creatinine Estimated GFR (MDRD) Glucose Calcium Total Bilirubin AST ALT Alkaline Phosphatase Troponin I High Sens 2103.7 H* B-Natriuretic Peptide 482 H Total Protein Albumin Globulin Albumin/Globulin Ratio Lipase Nasal Adenovirus (PCR) NOT DETECTED Nasal B. parapertussis DNA (PCR) NOT DETECTED Nasal Coronavir 229E PCR NOT DETECTED Nasal Coronavir HKU1 PCR NOT DETECTED Nasal Coronavir NL63 PCR NOT DETECTED Nasal Coronavir OC43 PCR NOT DETECTED Nasal Enterovir/Rhinovir PCR NOT DETECTED Nasal Influenza B PCR NOT DETECTED Nasal Influenza A PCR NOT DETECTED Nasal Parainfluen 1 PCR NOT DETECTED Nasal Parainfluen 2 PCR NOT DETECTED Nasal Parainfluen 3 PCR NOT DETECTED Nasal Parainfluen 4 PCR NOT DETECTED Nasal RSV (PCR) NOT DETECTED Nasal B.pertussis DNA PCR NOT DETECTED Nasal C.pneumoniae (PCR) NOT DETECTED [place] Human Metapneumo PCR NOT DETECTED Nasal M.pneumoniae (PCR) NOT DETECTED Nasal SARS-CoV-2 (PCR) NOT DETECTED - Rads (name of study) chest xray Radiology: Prelim report reviewed (vascular congestion c/w CHF. No infiltrates. mild cardiomegaly. ), See rad report PD MEDICAL DECISION MAKING - ED course Complexity details: reviewed results (Sniffily elevated troponin which in conjunction with his exertional dyspnea and chest pain was concerning for unstable angina or new VA exacerbating the congestive failure. He needs further evaluation. Echo is unavailable at our facility for 3 days.), re-evaluated patient (More comfortably with some diuretic and nitrate. Oxygenation is still good. Blood pressure now 121 systolic.), considered differential (Significant CHF. He is not hypoxic but does have work of breathing. Edema in the legs and crackles in the lungs. Chest x-ray consistent with CHF. Will give diuretics and nitrates.), d/w patient, d/w wardrobe image consultant (Dr. Muniz cardiology at [facility] on- call for Dr. Grimes. He referred to the hospitalist. Talk with Dr. Green who accepted.) - Critical Care Time(min): 30 Comments: acute resp distress, concern for AMI. Has elevated troponin. Acute medical intervention needed. Time Includes: Direct patient care, Reassess patient, Medical consult Data interpretation: Labs, Pulse ox, CXR Procedures excluded from critical care time: EKG Departure - Departure Disposition: 02 Transfer Acute Care Hosp Clinical Impression: Elevated troponin Acute CHF Qualifiers: Heart failure type: unspecified Qualified Code(s): I50.9 - Heart failure, unspecified Dyspnea Qualifiers: Dyspnea type: orthopnea Qualified Code(s): R06.01 - Orthopnea Condition: Stable
[2021-08-13 08:40] LABS: BASOPHILS % (AUTO) 0.5 %; EOSINOPHILS # (AUTO) 0.1 10^3/uL (0.0-0.7); EOSINOPHILS % (AUTO) 0.8 %; HCT - HEMATOCRIT 35.4 % (42.0-52.0); HGB - HEMOGLOBIN 11.9 g/dL (14.0-18.0); LYMPHOCYTES # (AUTO) 2.6 10^3/uL (1.5-3.5); LYMPHOCYTES % (AUTO) 33.4 %; MEAN CORPUSCULAR HEMOGLOBIN 34.1 pg (27.0-31.0); MEAN CORPUSCULAR HGB CONC 33.6 g/dL (32.0-36.0); MEAN CORPUSCULAR VOLUME 101.4 fL (80.0-94.0); MEAN PLATELET VOLUME 9.9 fL (7.4-11.4); MONOCYTES # (AUTO) 0.7 10^3/uL (0.0-1.0); MONOCYTES % (AUTO) 8.4 %; NEUTROPHILS # (AUTO) 4.4 10^3/uL (1.5-6.6); NEUTROPHILS % (AUTO) 56.5 %; PLT - PLATELET COUNT 170 10^3/uL (130-450); RED BLOOD COUNT 3.49 10^6/uL (4.70-6.10); RED CELL DISTRIBUTION WIDTH 13.6 % (12.0-15.0); WHITE BLOOD COUNT 7.8 x10^3/uL (4.8-10.8)
[2021-08-13 08:58] LABS: ALBUMIN/GLOBULIN RATIO 1.2 (1.0-2.2); BILIRUBIN,TOTAL 1.1 mg/dL (0.2-1.0); CALCIUM 9.4 mg/dL (8.5-10.3); CREATININE 1.3 mg/dL (0.6-1.2); POTASSIUM 4.2 mmol/L (3.5-5.0); TOTAL PROTEIN 7.4 g/dL (6.7-8.2)
[2021-08-13] MEDS ORDERED: ASPIRIN CHEW 81 MG TABLET PO STA (09:51)
--- NOTE | 2021-08-13 09:56 | XRAY Report ---
PROCEDURE: Chest 1 View X-Ray INDICATIONS: Chest Pain TECHNIQUE: One view of the chest was acquired. COMPARISON: 10/28/2019 FINDINGS: Surgical changes and devices: Status post median sternotomy. Left chest wall pacer with intact leads . Lungs and pleura: No pleural effusions or pneumothorax. No focal consolidation or mass. Prominent interstitial markings possibly chronic versus mild CHF. [place] B lines are noted consistent with mi ld pulmonary edema. Mediastinum: Mediastinal contours appear normal. Heart size is mildly enlarged. Bones and chest wall: No suspicious bony lesions. Overlying soft tissues appear unremarkable. Dege nerative changes of both shoulders and the thoracic spine. IMPRESSION: Mild cardiomegaly and mild CHF Reviewed by: Rizwan Lewis on 08/13/2021 8:55 AM L[facility] Approved by: Rizwan Lewis on 08/13/2021 8:55 AM [facility] Station ID: [id number]
[2021-08-13] MEDS ORDERED: ENOXAPARIN 100 MG/ML SYRINGE SUBQ STA (10:40)
[2021-08-13 11:19] VITALS: BP 139/70
[2021-08-13 11:24] LABS: B. PARAPERTUSSIS- RESP PCR PAN NOT DETECTED; B. PERTUSSIS- RESP PCR PANEL NOT DETECTED; C. PNEUMONIAE- RESP PCR PANEL NOT DETECTED; CORONAVIRUS 229E-RESP PCR NOT DETECTED; CORONAVIRUS HKU1-RESP PCR NOT DETECTED; CORONAVIRUS NL63-RESP PCR NOT DETECTED; CORONAVIRUS OC43-RESP PCR NOT DETECTED; HUMAN METAPNEUMOVIRUS NOT DETECTED; INFLUENZA A- RESP PCR PANEL NOT DETECTED; INFLUENZA B - RESP PCR PANEL NOT DETECTED; M. PNEUMONIAE- RESP PCR PANEL NOT DETECTED; PARAINFLUENZA VIRUS 1 NOT DETECTED; PARAINFLUENZA VIRUS 2 NOT DETECTED; PARAINFLUENZA VIRUS 3 NOT DETECTED; PARAINFLUENZA VIRUS 4 NOT DETECTED; RHINOVIRUS/ENTEROVIRUS NOT DETECTED; RSV- RESP PCR PANEL NOT DETECTED; SARS-CoV-2 -RESP PCR PANEL NOT DETECTED
== END 2021-08-13 12:26 | disposition short-term general hospital (02) ==
LOC: EDUNIT# → ED 08:10
DX: I11.0 Hypertensive heart disease with heart failure (principal); I50.9 Heart failure, unspecified; Z95.0 Presence of cardiac pacemaker; E11.9 Type 2 diabetes mellitus without complications; Z79.4 Long term (current) use of insulin; Z20.822 Contact with and (suspected) exposure to COVID-19
CPT/HCPCS: 36415; 71045; 80053; 83690; 83880; 84484; 85025; 87631; 93005; 94640; 94664; 96372; 96374; 99285; 99291; A9270; J1650; 0202U

== ENCOUNTER 2021-08-13 12:26 | Outpatient (CLI) | payer MEDICARE, OTHER | END 2021-08-13 12:27 | disposition short-term general hospital (02) | LOC: EMS 12:26 | PROVIDERS: ATTEND Emergency Medicine | DX: I50.9 Heart failure, unspecified (principal); R74.8 Abnormal levels of other serum enzymes | CPT/HCPCS: A0425; A0428 ==

== ENCOUNTER 2021-08-23 11:50 | Outpatient (CLI) | payer MEDICARE, OTHER ==
[2021-08-23 18:55] LABS: CREATININE 1.7 mg/dL (0.6-1.2); POTASSIUM 4.6 mmol/L (3.5-5.0)
== END 2021-08-23 23:59 | disposition home or self-care (01) ==
LOC: LAB.WCP 11:50
PROVIDERS: ATTEND Family Medicine
DX: R06.09 Other forms of dyspnea (principal); I25.10 Atherosclerotic heart disease of native coronary artery without angina pectoris
CPT/HCPCS: 36415; 80048; 83880

== ENCOUNTER 2021-10-04 11:53 | Outpatient (CLI) | payer MEDICARE, OTHER | END 2021-10-04 11:54 | disposition home or self-care (01) | LOC: LAB.N 11:53 | PROVIDERS: ATTEND Internal Medicine | DX: Z53.9 Procedure and treatment not carried out, unspecified reason (principal) ==

== ENCOUNTER 2021-10-04 13:15 | Outpatient (CLI) | payer MEDICARE, OTHER ==
[2021-10-04 18:03] LABS: CALCIUM 9.9 mg/dL (8.5-10.3); CREATININE 2.5 mg/dL (0.6-1.2)
== END 2021-10-04 13:16 | disposition home or self-care (01) ==
LOC: LAB.N 13:15
PROVIDERS: ATTEND Internal Medicine Cardiovascular Disease
DX: I10 Essential (primary) hypertension (principal)
CPT/HCPCS: 36415; 80048

== ENCOUNTER 2021-10-17 11:03 | Outpatient (CLI) | payer MEDICARE, OTHER ==
[2021-10-17 18:11] LABS: ABSOLUTE RETICS # AUTO 0.072 10^6/uL (0.020-0.110); BASOPHILS % (AUTO) 0.3 %; EOSINOPHILS # (AUTO) 0.1 10^3/uL (0.0-0.7); EOSINOPHILS % (AUTO) 1.7 %; HCT - HEMATOCRIT 30.9 % (42.0-52.0); HGB - HEMOGLOBIN 9.8 g/dL (14.0-18.0); LYMPHOCYTES # (AUTO) 1.6 10^3/uL (1.5-3.5); LYMPHOCYTES % (AUTO) 22.5 %; MEAN CORPUSCULAR HEMOGLOBIN 32.3 pg (27.0-31.0); MEAN CORPUSCULAR HGB CONC 31.7 g/dL (32.0-36.0); MEAN PLATELET VOLUME 10.3 fL (7.4-11.4); MONOCYTES # (AUTO) 0.7 10^3/uL (0.0-1.0); MONOCYTES % (AUTO) 9.4 %; NEUTROPHILS # (AUTO) 4.6 10^3/uL (1.5-6.6); NEUTROPHILS % (AUTO) 65.8 %; PLT - PLATELET COUNT 162 10^3/uL (130-450); RED BLOOD COUNT 3.03 10^6/uL (4.70-6.10); RED CELL DISTRIBUTION WIDTH 14.2 % (12.0-15.0); RETICULOCYTE COUNT % (AUTO) 2.38 % (0.5-2.3)
[2021-10-17 18:43] LABS: CALCIUM 9.9 mg/dL (8.5-10.3); CREATININE 2.6 mg/dL (0.6-1.2); POTASSIUM 5.7 mmol/L (3.5-5.0)
[2021-10-17 18:53] LABS: THYROID STIMULATING HORMONE 7.2 uIU/mL (0.34-5.60)
[2021-10-17 19:00] LABS: FERRITIN 177.7 ng/mL (23.9-336.2)
[2021-10-17 19:23] LABS: FREE T4 (FREE THYROXINE) 0.8 ng/dL (0.58-1.64)
[2021-10-18 09:06] LABS: ESTIMATED AVERAGE GLUCOSE 111 mg/dL (70-100); HEMOGLOBIN A1c% 5.5 % (4.27-6.07)
== END 2021-10-17 11:04 | disposition home or self-care (01) ==
LOC: LAB.N 11:03
PROVIDERS: ATTEND Internal Medicine
DX: I10 Essential (primary) hypertension (principal); D64.9 Anemia, unspecified; E11.29 Type 2 diabetes mellitus with other diabetic kidney complication; R94.6 Abnormal results of thyroid function studies
CPT/HCPCS: 36415; 80048; 82607; 82728; 83036; 83540; 84439; 84443; 84466; 85025; 85045

== ENCOUNTER 2021-10-25 15:55 | Outpatient (CLI) | payer MEDICARE, OTHER | END 2021-10-25 15:56 | disposition home or self-care (01) | LOC: LAB.N 15:55 | PROVIDERS: ATTEND Nurse Practitioner | DX: I50.33 Acute on chronic diastolic (congestive) heart failure (principal) | CPT/HCPCS: 36415; 83880 ==

== ENCOUNTER 2021-11-01 12:59 | Outpatient (CLI) | payer MEDICARE, OTHER ==
--- NOTE | 2021-11-01 21:40 | Ultrasound Report ---
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 COMPARISON: None FINDINGS: Kidneys: Kidneys are atrophic in size. Right kidney measures 10.8 cm long; left kidney measures 10. 6 cm long. Right renal cortical thickness is 1.4 cm; left renal cortical thickness is 1.6 cm. No so lid masses, or hydronephrosis. 5 mm nonobstructing calculus is noted within the right kidney. In the left kidney to calcifications are present the largest measuring 2.6 cm, nonobstructing. Left renal cy st is present measuring 2.6 cm. It is a simple cyst. Bladder: Prevoid volume 3 3 cc, post void residual unchanged secondary to inability to urinate. There is a focal masslike echogenic focus in the left lateral bladder measuring 1.7 cm with increased vasc ularity. It is adjacent to the ureterovesicular junction. IMPRESSION: 1. Left lateral bladder mass as above. Malignancy cannot be excluded and further evaluation with cyst oscopy is recommended. No obstruction. Reviewed by: Lorraine Valdes MD on 11/01/2021 9:39 PM PST Approved by: Lorraine Valdes MD on 11/01/2021 9:39 PM PST Station ID: [id number]
== END 2021-11-01 13:00 | disposition home or self-care (01) ==
LOC: DI 12:59
PROVIDERS: ATTEND Family Medicine
DX: N17.9 Acute kidney failure, unspecified (principal); R93.89 Abnormal findings on diagnostic imaging of other specified body structures

== ENCOUNTER 2021-11-04 08:00 | Outpatient (CLI) | payer MEDICARE, OTHER ==
[2021-11-04 18:11] LABS: BUN - BLOOD UREA NITROGEN 40 mg/dL (6-20); CALCIUM 10.2 mg/dL (8.5-10.3); CARBON DIOXIDE - CO2 29 mmol/L (21-32); CHLORIDE 99 mmol/L (101-111); CHOL/HDL RATIO 3.4 (<5.0); CHOLESTEROL 115 mg/dL; CREATININE 1.8 mg/dL (0.6-1.2); GFR - MDRD 36 (>89); GLUCOSE 163 mg/dL (70-100); HDL CHOLESTEROL 34 mg/dL; LDL CHOLESTEROL,CALCULATED 65 mg/dL; LDL/HDL RATIO 1.9 (<3.6); POTASSIUM 4.6 mmol/L (3.5-5.0); SODIUM 139 mmol/L (135-145); TRIGLYCERIDES 82 mg/dL; VLDL CHOLESTEROL 16 mg/dL
== END 2021-11-04 23:59 | disposition home or self-care (01) ==
LOC: LAB.N 08:00
PROVIDERS: ATTEND Nurse Practitioner
DX: E78.5 Hyperlipidemia, unspecified (principal); I50.33 Acute on chronic diastolic (congestive) heart failure; N28.9 Disorder of kidney and ureter, unspecified
CPT/HCPCS: 36415; 80048; 80061; 83721

== ENCOUNTER 2021-11-15 08:56 | Outpatient (CLI) | payer MEDICARE, OTHER | END 2021-11-15 08:57 | disposition EMS.NT | LOC: EMS 08:56 | DX: Z03.89 Encounter for observation for other suspected diseases and conditions ruled out (principal) ==

== ENCOUNTER 2021-11-20 11:57 | Emergency (ER) | payer MEDICARE, OTHER ==
--- OUTSIDE RECORDS SUMMARY | 2021-11-20 12:39 | EXTERNAL MEDICAL SUMMARY RPT | Continuity of Care Document ---
:1935 Author Organization [facility] Address [address] [place] [address] Phone Allergies No information. Encounters No information. Medications No information. 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
[2021-11-20] MEDS: SODIUM CHLORIDE 0.9% 1,000 ML IV STA ×2 (13:00→14:23)
--- NOTE | 2021-11-20 13:03 | ED Physician Documentation ---
PD HPI Fall - Stated complaint Stated Complaint: GLF - Chief complaint Chief Complaint: Trauma Ext - History obtained from History obtained from: Patient - History of Present Illness Mechanism of injury: Tripped Fall distance: Standing position Where injury occurred: Home Timing - onset: Today Injury(ies) location: Right Upper Extremity Quality of pain: Pain Associated symptoms: Dyspnea (same as always). No: LOC, AMS, Amnesia, Seizures, Ear drainage, Nasal drainage, Neck pain, Weakness, Paresthesias, Nausea / vomiting, Hematemesis, Abdominal distension Symptoms improve with: Rest Worsens with: Movement, Palpation Contributing factors: No: Anticoagulated, Intoxicated Similar symptoms before: No diagnosis Recently seen: Not recently seen - Additional information Additional information: 86-year-old male has recently become a resident at [facility] and he is not liking this. Today he has had a fall injuring his right elbow. He has a skin tear. He otherwise states he does not feel ill and does not feel that he was injured in the fall. He does complain of some urinary incontinence which is abnormal for him. Review of Systems Constitutional: denies: Fever Eyes: denies: Decreased vision Ears: denies: Ear pain Nose: denies: Congestion Throat: denies: Sore throat Cardiac: denies: Chest pain / pressure, Palpitations Respiratory: reports: Dyspnea, Cough GI: denies: Abdominal Pain, Nausea, Vomiting, Constipation, Diarrhea : reports: Frequency, Incontinent. denies: Dysuria Skin: denies: Rash Musculoskeletal: reports: Extremity swelling. denies: Neck pain, Back pain Neurologic: denies: Generalized weakness, Focal weakness, Numbness PD PAST MEDICAL HISTORY - Past Medical History Cardiovascular: Hypertension, High cholesterol, Arrhythmia (bradycardia with pacemaker placed. ), Valve disorder Respiratory: Asthma Neuro: None Endocrine/Autoimmune: Type 2 diabetes GI: GERD HEENT: None Psych: None Musculoskeletal: None - Past Surgical History Past Surgical History: Yes Cardiovascular: Valve replacement, Pacemaker HEENT: Cataracts - Present Medications Home Medications: Ambulatory Orders Medication Instructions Recorded Confirmed Albuterol Sulfate 0.63 mg IH 3-4XD PRN 06/02/13 08/13/21 Atorvastatin Calcium [Lipitor] 40 mg PO DAILY 06/02/13 08/13/21 Clonazepam 0.5 mg PO DAILY 06/02/13 08/13/21 Fenofibrate [Tricor] 48 mg PO QD 10/07/13 12/18/21 Glipizide [Glipizide ER] 10 mg PO DAILY 06/02/13 08/13/21 Insulin Glargine [Lantus Solostar] 30 units SQ QAM 06/02/13 08/13/21 Lisinopril 10 mg PO DAILY 06/02/13 08/13/21 Metformin HCl 1,000 mg PO DAILY 06/02/13 08/13/21 Metoprolol Succinate [Toprol Xl] 50 mg ORAL DAILY 06/02/13 08/13/21 Nitroglycerin [Nitrostat] 0.4 mg SL Q5MIN PRN 06/02/13 08/13/21 Aspirin EC [Ecotrin] 81 mg PO DAILY 08/13/21 08/13/21 Cholecalciferol (Vitamin D3) 50 mcg PO DAILY 08/13/21 08/13/21 [Vitamin D3] Finasteride [Proscar] 5 mg PO DAILY 08/13/21 08/13/21 [place]-3/Dha/Epa/Fish Oil [Fish Oil 1,000 mg PO DAILY 08/13/21 08/13/21 1,000 mg Softgel] hydroCHLOROthiazide [Hydrodiuril] 12.5 mg PO DAILY 08/13/21 08/13/21 - Allergies Allergies/Adverse Reactions: Allergies Allergy/AdvReac Type Severity Reaction Status Date / Time No Known Drug Allergies Allergy Verified 11/20/21 12:03 - Social History Does the pt smoke?: No Smoking Status: Never smoker Does the pt drink ETOH?: Yes Does the pt have substance abuse?: No - Immunizations Immunizations are current?: Yes PD ED PE NORMAL - Vitals Vital signs reviewed: Yes (wide pulse pressure) - General General: No acute distress, Well developed/nourished - HEENT HEENT: Atraumatic, PERRL, EOMI, Other (no pain/swelling or deformity to deep palpation of the scalp and neck) - Neck Neck: Supple, no meningeal sign, No bony TTP - Cardiac Cardiac: RRR, Other (heart sounds are distant) - Respiratory Respiratory: Other (tachypneic at re) - Abdomen Abdomen: Soft, Non tender - Back Back: No CVA TTP, No spinal TTP - Derm Derm: Normal color, Warm and dry, No rash - Extremities Extremities: No deformity, Other (There is bilateral pitting edema in the feet RN compression stockings. There is a skin tear to the right elbow this is superficial and bleeding is controlled. There is full range of motion to flexion extension and supination pronation of the forearm. 3cm superficial skin tear to the lateral elbow.) - Neuro Neuro: Alert and oriented X 3, paster operator 2-12 intact, No motor deficit, No sensory deficit, Normal speech Eye Opening: Spontaneous Motor: Obeys Commands Verbal: Confused GCS Score: 14 - Psych Psych: Normal mood, Normal affect Results - Vitals Vitals: Vital Signs - 24 hr 11/20/21 12:03 Temperature 36.5 C Heart Rate 62 Respiratory 16 Rate Blood Pressure 110/50 L O2 Saturation 98 Oxygen O2 Source Room air - Labs Labs: Laboratory Tests 11/20/21 11/20/21 11/20/21 13:34 13:34 13:34 WBC 8.4 RBC 3.20 L Hgb 9.7 L Hct 31.8 L MCV 99.4 H MCH 30.3 MCHC 30.5 L RDW 14.2 Plt Count 157 MPV 10.9 Neut # (Auto) 5.9 Lymph # (Auto) 1.6 [place] # (Auto) 0.8 Eos # (Auto) 0.0 Baso # (Auto) 0.0 Absolute Nucleated RBC 0.00 Nucleated RBC % 0.0 Sodium 142 Potassium 4.2 Chloride 101 Carbon Dioxide 24 Anion Gap 17.0 H BUN 39 H Creatinine 2.1 H Estimated GFR (MDRD) 30 L Glucose 93 Lactic Acid 1.8 Calcium 10.0 Total Bilirubin 2.4 H AST 43 H ALT 22 Alkaline Phosphatase 30 L Total Protein 7.6 Albumin 4.0 Globulin 3.6 Albumin/Globulin Ratio 1.1 Lipase 36 Urine Color Urine Clarity Urine pH Ur Specific [place] Urine Protein Urine Glucose (UA) Urine Ketones Urine Occult Blood Urine Nitrite Urine Bilirubin Urine Urobilinogen Ur Leukocyte Esterase Urine RBC Urine WBC Ur Squamous Epith Cells Urine Bacteria Urine Casts Ur Microscopic Review Urine Culture Comments 11/20/21 16:35 WBC RBC Hgb Hct MCV MCH MCHC RDW Plt Count MPV Neut # (Auto) Lymph # (Auto) [place] # (Auto) Eos # (Auto) Baso # (Auto) Absolute Nucleated RBC Nucleated RBC % Sodium Potassium Chloride Carbon Dioxide Anion Gap BUN Creatinine Estimated GFR (MDRD) Glucose Lactic Acid Calcium Total Bilirubin AST ALT Alkaline Phosphatase Total Protein Albumin Globulin Albumin/Globulin Ratio Lipase Urine Color DARK YELLOW Urine Clarity CLOUDY Urine pH 5.5 Ur Specific [place] 1.025 Urine Protein TRACE Urine Glucose (UA) NEGATIVE Urine Ketones TRACE Urine Occult Blood MODERATE H Urine Nitrite NEGATIVE Urine Bilirubin NEGATIVE Urine Urobilinogen 2 H Ur Leukocyte Esterase NEGATIVE Urine RBC 6-10 H Urine WBC 0-3 Ur Squamous Epith Cells RARE Squamous Urine Bacteria Few Urine Casts 6-10 Hyaline Casts Ur Microscopic Review INDICATED Urine Culture Comments NOT INDICATED Procedures - IVC sono (time) 1250 Bedside IVC sono: IVC measures (cm) (0.9), Dehydration (est 1-2 liter deficit) PD MEDICAL DECISION MAKING - ED course Complexity details: reviewed old records, reviewed results, re-evaluated patient, considered differential, d/w patient, d/w family ED course: 86-year-old male who was recently become a resident at [facility] has had a fall today injuring his right elbow. He is found to be significantly dehydrated on interrogation of his inferior vena cava and he is in he is given intravenous saline. We have a hard time getting urine out of the patient and he eventually requires catheterization.Urine is tea colored and likely has been in place for some time. I suspect this patient has had overflow incontinence recently and this has caused the patient to reduce his fluid intake to prevent this from happening. When I confronted the patient with his urinary habits he does indicate that he has been having some issue with small amounts of urine frequently for some time.I have asked the patient to leave the catheter in place for 1 to 2 weeks for bladder retraining. He has an appointment to see urology in November. I have asked the patient to follow-up with his primary care doctor in 1 to 2 weeks for consideration of a voiding trial. Departure - Departure Disposition: 01 Home, Self Care Clinical Impression: Dehydration, Acute urinary retention Condition: Stable Instructions: ED Dehydration, ED Catheter Care Jeffrey, ED Retention Urinary Male Follow-Up: Michael Santana MD [Primary Care Provider] - Comments: Landon, today we found that you were significantly dehydrated. This is likely secondary to not drinking enough water and being on a diuretic. The new symptom that you are having of incontinence is likely due to the fact your bladder is overfilled. We have placed a Jeffrey catheter and this will need to stay in place for 1 to 2 weeks. This will allow time for your bladder to regain its ability to contract. There is no evidence today of infection. Follow-up with Dr. Santana in 1 to 2 weeks for removal of the catheter. If the catheter becomes cloudy or stops draining urine that is a reason to revisit us.
[2021-11-20 13:41] LABS: BASOPHILS % (AUTO) 0.5 %; EOSINOPHILS % (AUTO) 0.5 %; HCT - HEMATOCRIT 31.8 % (42.0-52.0); HGB - HEMOGLOBIN 9.7 g/dL (14.0-18.0); LYMPHOCYTES # (AUTO) 1.6 10^3/uL (1.5-3.5); LYMPHOCYTES % (AUTO) 19.5 %; MEAN CORPUSCULAR HEMOGLOBIN 30.3 pg (27.0-31.0); MEAN CORPUSCULAR HGB CONC 30.5 g/dL (32.0-36.0); MEAN CORPUSCULAR VOLUME 99.4 fL (80.0-94.0); MEAN PLATELET VOLUME 10.9 fL (7.4-11.4); MONOCYTES # (AUTO) 0.8 10^3/uL (0.0-1.0); MONOCYTES % (AUTO) 9.1 %; NEUTROPHILS # (AUTO) 5.9 10^3/uL (1.5-6.6); NEUTROPHILS % (AUTO) 70.3 %; PLT - PLATELET COUNT 157 10^3/uL (130-450); RED CELL DISTRIBUTION WIDTH 14.2 % (12.0-15.0); WHITE BLOOD COUNT 8.4 x10^3/uL (4.8-10.8)
[2021-11-20 13:55] LABS: ALBUMIN/GLOBULIN RATIO 1.1 (1.0-2.2); BILIRUBIN,TOTAL 2.4 mg/dL (0.2-1.0); CREATININE 2.1 mg/dL (0.6-1.2); POTASSIUM 4.2 mmol/L (3.5-5.0); TOTAL PROTEIN 7.6 g/dL (6.7-8.2)
[2021-11-20 16:41] LABS: BILIRUBIN,URINE NEGATIVE (NEGATIVE); GLUCOSE, URINE (UA) NEGATIVE (NEGATIVE); KETONES,URINE (UA) TRACE mg/dL (NEGATIVE); LEUKOCYTE ESTERASE, URINE NEGATIVE (NEGATIVE); NITRITE,URINE NEGATIVE (NEGATIVE); OCCULT BLOOD,URINE MODERATE (NEGATIVE); PH,URINE 5.5 PH (5.0-7.5); PROTEIN,URINE TRACE mg/dL (NEGATIVE); UROBILINOGEN,URINE 2 E.U./dL (NORMAL)
[2021-11-20 16:45] LABS: CLARITY,URINE CLOUDY (CLEAR)
[2021-11-20 16:49] LABS: BACTERIA,URINE Few /HPF (None Seen); SQUAMOUS EPITHELIAL CELL,UR RARE Squamous (<= Few); WBC,URINE 0-3 /HPF (0-3)
[2021-11-20 17:54] VITALS: BP 112/60
== END 2021-11-20 17:54 | disposition home or self-care (01) ==
LOC: EDUNIT# → ED 11:57
DX: E86.0 Dehydration (principal); R33.9 Retention of urine, unspecified; S51.011A Laceration without foreign body of right elbow, initial encounter; W01.0XXA Fall on same level from slipping, tripping and stumbling without subsequent striking against object, initial encounter; Y92.199 Unspecified place in other specified residential institution as the place of occurrence of the external cause
CPT/HCPCS: 36415; 51702; 51798; 80053; 81001; 81003; 83605; 83690; 85025; 87040; 87086; 99284

== ENCOUNTER 2021-11-20 19:08 | Outpatient (CLI) | payer MEDICARE, OTHER | END 2021-11-20 19:09 | disposition E | LOC: EMS 19:08 | DX: I46.9 Cardiac arrest, cause unspecified (principal); S51.011A Laceration without foreign body of right elbow, initial encounter; R53.1 Weakness; R47.81 Slurred speech; R42 Dizziness and giddiness; R06.9 Unspecified abnormalities of breathing; W18.39XA Other fall on same level, initial encounter; Y93.01 Activity, walking, marching and hiking; Y92.099 Unspecified place in other non-institutional residence as the place of occurrence of the external cause | CPT/HCPCS: A0425; A0428; A0429 ==